=== PATIENT | male | born 1955 | race Caucasian/White ===

== ENCOUNTER 2024-09-28 10:15 | Day surgery (SDC) | payer MEDICARE ==
[2024-09-28] MEDS: Lidocaine 1% 10 ML MDV ONE (11:30)
[2024-09-28] MEDS: Bupivacaine 0.25% 10 ML SDV ONE (11:30)
== END 2024-09-28 11:54 | disposition home or self-care (01) ==
LOC: JD.SDS 10:15
PROVIDERS: ATTEND Orthopaedic Surgery
DX: G56.11 Other lesions of median nerve, right upper limb (principal); G56.03 Carpal tunnel syndrome, bilateral upper limbs; I25.10 Atherosclerotic heart disease of native coronary artery without angina pectoris; K21.9 Gastro-esophageal reflux disease without esophagitis; E78.2 Mixed hyperlipidemia; Z79.899 Other long term (current) drug therapy
CPT/HCPCS: 64721; J0665; J2003

== ENCOUNTER 2024-10-19 07:23 | Day surgery (SDC) | payer MEDICARE ==
[~2024-10-19 07:23] MED LIST: Lactated Ringers 1,000 ML IV SCH; Sodium Chloride 0.9% 10 ML Syringe FLUSH PRN; Sodium Chloride 0.9% 10 ML Syringe FLUSH SCH
[2024-10-19] MEDS: Bupivacaine 0.25% 10 ML SDV ONE (08:27)
[2024-10-19] MEDS: Lidocaine 1% 10 ML MDV ONE (08:27)
== END 2024-10-19 08:53 | disposition home or self-care (01) ==
LOC: JD.SDS 07:23
PROVIDERS: ATTEND Orthopaedic Surgery
DX: G56.12 Other lesions of median nerve, left upper limb (principal); G56.03 Carpal tunnel syndrome, bilateral upper limbs; I10 Essential (primary) hypertension; K21.9 Gastro-esophageal reflux disease without esophagitis; E78.2 Mixed hyperlipidemia; I25.10 Atherosclerotic heart disease of native coronary artery without angina pectoris
CPT/HCPCS: 64721; J0665; J2003